=== PATIENT | female | born 2000 | race Caucasian/White ===

== ENCOUNTER 2022-06-26 11:43 | Emergency (ER) | payer OTHER ==
--- NOTE | 2022-06-26 12:34 | ED ---
Abdominal Pain HPI - General Source: patient Mode of arrival: ambulatory Limitations: no limitations <Grace Centeno - Last Filed: 06/26/22 12:32> - General Source: patient, family, RN notes reviewed Mode of arrival: ambulatory Limitations: no limitations <Brant Liu - Last Filed: 06/26/22 18:41> - General Chief Complaint: Abdominal Pain Stated Complaint: 7wks Preg, "no longer having symptoms" - History of Present Illness Initial Comments: 22 year old female presenting to the emergency department compl aining of a problem. She reports that she is 7 weeks and 6 days and has had daily nausea and feeling hungry when she wakes up. Today she woke up and did not have those symptoms. She denies nausea, vomiting, diarrhea, vaginal bleeding, vaginal cramping, vaginal discharge. (Grace Centeno) Patient is a pleasant 22-year-old female presenting to the emergency department with concerns regarding . This is patient's second . Patient normally has a lot of breast tenderness, cramping, and nausea. Patient had none of those symptoms today and therefore she was concerned. Patient denies any bleeding. Patient did have ultrasound done just over a week ago showing 6 weeks intrauterine at a different facility. (Brant Liu) - Related Data Allergies Allergy/AdvReac Type Severity Reaction Status Date / Time No Known Allergies Allergy Verified 06/26/22 12:09 Review of Systems ROS Other: All systems not noted in ROS Statement are negative. <Grace Centeno - Last Filed: 06/26/22 12:32> ROS Other: All systems not noted in ROS Statement are negative. Constitutional: Denies: fever Eyes: Denies: eye pain ENT: Denies: ear pain Respiratory: Denies: cough Cardiovascular: Denies: chest pain Endocrine: Denies: fatigue Gastrointestinal: Reports: as per HPI Genitourinary: Reports: as per HPI <Brant Liu - Last Filed: 06/26/22 18:41> ROS Statement: Those systems with pertinent positive or pertinent negative responses have been documented in the HPI. Past Medical History Past Medical History: No Reported History History of Any Multi-Drug Resistant Organisms: None Reported Past Surgical History: No Surgical Hx Reported Past Psychological History: No Psychological Hx Reported Smoking Status: Never smoker Past Alcohol Use History: None Reported Past Drug Use History: None Reported <Grace Centeno - Last Filed: 06/26/22 12:32> General Exam Limitations: no limitations <Grace Centeno - Last Filed: 06/26/22 12:32> Limitations: no limitations General appearance: alert, in no apparent distress Head exam: Present: normocephalic Eye exam: Present: normal appearance Neck exam: Present: normal inspection Respiratory exam: Present: normal lung sounds bilaterally Cardiovascular Exam: Present: regular rate, normal rhythm GI/Abdominal exam: Present: soft. Absent: tenderness Extremities exam: Present: normal inspection. Absent: pedal edema, calf tenderness Neurological exam: Present: alert Psychiatric exam: Present: normal affect, normal mood Skin exam: Present: normal color <Brant Liu - Last Filed: 06/26/22 18:41> Course Vital Signs 06/26/22 12:09 Temperature 98.2 F Pulse Rate 90 Respiratory 16 Rate Blood Pressure 138/89 O2 Sat by Pulse 99 Oximetry Medical Decision Making - Lab Data Result diagrams: 06/26/22 14:04 06/26/22 14:04 <Brant Liu - Last Filed: 06/26/22 18:41> - Medical Decision Making Was pt. sent in by a medical professional or institution (, ADAM, AQUACULTURE DIRECTOR, urgent care, hospital, or penitentiary...) When possible be specific @ -[No] Did you speak to anyone other than the patient for history (EMS, parent, family, police, friend...)? What history was obtained from this source @ -Family is present that helps provide history of patient's usual symptoms. Did you review nursing and triage notes (agree or disagree)? Why? @ -[I reviewed and agree with nursing and triage notes] Were old charts reviewed (outside hosp., previous admission, EMS record, old EKG, old radiological studies, urgent care reports/EKG's, penitentiary records)? Report findings @ -[No old charts were reviewed] Differential Diagnosis (chest pain, altered mental status, abdominal pain women, abdominal pain men, vaginal bleeding, weakness, fever, dyspnea, syncope, headache, dizziness, GI bleed, back pain, seizure, CVA, palpatations, mental health)? @ -Differential Headache: Migraine, tension, cluster, carbon monoxide, central venous thrombosis, pension karma temporal arteritis, acute closure glaucoma, intercranial hemorrhage, ma stoiditis, sinusitis, head injury, this is not meant to be an all-inclusive list. Vaginal bleedingWas pt. sent in by a medical professional or institution ([facility]AM Thayer, AQUACULTURE DIRECTOR, urgent care, hospital, or penitentiary...) When possible be specific @ -Differential abdominal pain women Did you speak to anyone other than the patient for history (EMS, parent, family, police, friend...)? What history was obtained from this source @ -Family is present to help provide history. Did you review nursing and triage notes (agree or disagree)? Why? @ -[I reviewed and agree with nursing and triage notes] Were old charts reviewed (outside hosp., previous admission, EMS record, old EKG, old radiological studies, urgent care reports/EKG's, penitentiary records)? Report findings @ -[No old charts were reviewed] Differential Diagnosis (chest pain, altered mental status, abdominal pain women, abdominal pain men, vaginal bleeding, weakness, fever, dyspnea, syncope, headache, dizziness, GI bleed, back pain, seizure, CVA, palpatations, mental health)? @ -[not applicable] EKG interpreted by me (3pts min.). @ -[As above] X-rays interpreted by me (1pt min.). @ -[None done] CT interpreted by me (1pt min.). @ -[None done] U/S interpreted by me (1pt. min.). @ -Ultrasound report shows IUP 7 weeks 2 days What testing was considered but not performed or refused? (CT, X-rays, U/S, labs)? Why? @ -[None] What meds were considered but not given or refused? Why? @ -[None] Did you discuss the management of the patient with other professionals (professionals i.e. ADAM Thayer, AQUACULTURE DIRECTOR, lab, RT, psych nurse, socially responsible investment adviser, steel worker, teacher, loan officer assistant, continuous pillowcase cutter)? Give summary @ -[No] Was smoking cessation discussed for >3mins.? @ -[No] Was critical care preformed (if so, how long)? @ -[No] Were there social determinants of health that impacted care today? How? (Home lessness, low income, unemployed, alcoholism, drug addiction, transportation, low edu. Level, literacy, decrease access to med. care, senior living, rehab)? @ -[No] Was there de-escalation of care discussed even if they declined (Discuss DNR or withdrawal of care, Hospice)? DNR status @ -[No] What co-morbidities impacted this encounter? (DM, HTN, Smoking, COPD, CAD, Cancer, CVA, ARF, Chemo, Hep., AIDS, mental health diagnosis, sleep apnea, morbid obesity)? @ -[None] Was patient admitted / discharged? Hospital course, mention meds given and route, prescriptions, significant lab abnormalities, going to OR and other pertinent info. @ -Patient and family are made aware of results and need for follow-up. They do have an appointment for 10 days Undiagnosed new problem with uncertain prognosis? @ -[No] Drug Therapy requiring intensive monitoring for toxicity (Heparin, Nitro, Insulin, Cardizem)? @ -[No] Were any procedures done? @ -[No] Diagnosis/symptom? @ -Intrauterine Acute, or Chronic, or Acute on Chronic? @ -Acute Uncomplicated (without systemic symptoms) or Complicated (systemic symptoms)? @ -Uncomplicated Side effects of treatment? @ -[No] Exacerbation, Progression, or Severe Exacerbation? @ -[No] Poses a threat to life or bodily function? How? (Chest pain, [place], [place], pneumonia, PE, COPD, DKA, ARF, appy, cholecystitis, CVA, Diverticulitis, Homicidal, Suicidal, threat to staff... and all critical care pts) @ -[No] (Brant Liu) - Lab Data Lab Results 06/26/22 06/26/22 Range/Units 14:04 14:04 WBC 9.8 (3.8-10.6) k/uL RBC 4.04 (3.80-5.40) m/uL Hgb 13.1 (11.4-16.0) gm/dL Hct 36.6 (34.0-46.0) % MCV 90.6 (80.0-100.0) fL MCH 32.4 (25.0-35.0) pg MCHC 35.8 (31.0-37.0) g/dL RDW 11.4 L (11.5-15.5) % Plt Count 216 (150-450) k/uL MPV 8.4 Neutrophils % 75 % Lymphocytes % 17 % Monocytes % 5 % Eosinophils % 3 % Basophils % 0 % Neutrophils # 7.3 (1.3-7.7) k/uL Lymphocytes # 1.6 (1.0-4.8) k/uL Monocytes # 0.4 (0-1.0) k/uL Eosinophils # 0.3 (0-0.7) k/uL Basophils # 0.0 (0-0.2) k/uL Sodium 138 (137-145) mmol/L Potassium 4.0 (3.5-5.1) mmol/L Chloride 104 (98-107) mmol/L Carbon Dioxide 26 (22-30) mmol/L Anion Gap 8 mmol/L BUN 10 (7-17) mg/dL Creatinine 0.57 (0.52-1.04) mg/dL Est GFR (CKD-EPI)AfAm >90 (>60 ml/min/1.73 sqM) Est GFR (CKD-EPI)NonAf >90 (>60 ml/min/1.73 sqM) Glucose 83 (74-99) mg/dL Calcium 9.0 (8.4-10.2) mg/dL Total Bilirubin 0.2 (0.2-1.3) mg/dL AST 15 (14-36) U/L ALT 12 (4-34) U/L Alkaline Phosphatase 40 (38-126) U/L Total Protein 7.3 (6.3-8.2) g/dL Albumin 4.5 (3.5-5.0) g/dL HCG, Quant 070672.0 mIU/mL Disposition <Grace Centeno - Last Filed: 06/26/22 12:32> Is patient prescribed a controlled substance at d/c from ED?: No Time of Disposition: 18:41 <Brant Liu - Last Filed: 06/26/22 18:41> Clinical Impression: Intrauterine Disposition: HOME SELF-CARE Condition: Stable Instructions (If sedation given, give patient instructions): (ED) Additional Instructions: Please do follow-up with [facility] in the next couple days for recheck. Return for cramping, bleeding, fever, worsening or changing symptoms or other concerns. Referrals: Nonstaff,Physician [Primary Care Provider] - 1-2 days Beverly Bernal, DO [Doctor of Osteopathic Medicine] - 1-2 days
--- NOTE | 2022-06-26 13:52 | US ---
EXAMINATION TYPE: Transabdominal DATE OF EXAM: 06/26/2022 1:42 PM COMPARISON: NONE CLINICAL HISTORY: Threatened miscarriage. Patient states she woke up this morning without her pregnan cy symptoms such as nausea and breast pain. Patient states she is concerned. Positive beta hCG test. EXAM PERFORMED: Transabdominal (TA) EXAM MEASUREMENTS: GESTATIONAL AGE / DATING Physician Established: Not yet established Dates by LMP: (7 weeks/6 days) EDC: 02/06/2023 Dates by Current Scan for: (7 weeks/2 days) EDC: 02/10/2023 MATERNAL ANATOMY Uterus: 10.5 x 7.5 x 5.7 cm Right Ovary: 2.9 x 1.5 x 1.4 cm Left Ovary: 3.1 x 2.1 x 1.6 cm Post CDS / Adnexa: no free fluid Presence of free fluid: no Presence of corpus luteal cyst: no Presence of subchorionic bleed: fundal right- 1.7 x 0.9 x 1.1 cm GESTATION / SURVEY CRL: 1.1 cm (7 weeks/2 days) MSD: visualized within endometrium Yolk Sac (normal less than 6mm): 2.7 mm Heart Rate: 158 bpm Rhythm: Normal IUP: Viable IUP Date of LMP: 05/02/2022, Beta HcG (if available): Not available at this time Single live intrauterine gestation as gestational sac, yolk sac, and pole are seen. Possible ti ny fundal subchorionic hemorrhage versus implantation bleed measuring 1.7 x 1.1 x 0.9 cm towards end of study. No free fluid in pelvis. Both ovaries are seen. Ovaries symmetric and normal in size. There is no suspicious adnexal mass. IMPRESSION: Single live intrauterine gestation is confirmed. Mean crown-rump length 1.1 cm correspond ing to 7 week 2 day old fetus.
[2022-06-26 14:25] LABS: Basophils % (A) 0 %; Eosinophils # (A) 0.3 k/uL (0-0.7); Eosinophils % (A) 3 %; HCT 36.6 % (34.0-46.0); HGB 13.1 gm/dL (11.4-16.0); Lymphocytes # (A) 1.6 k/uL (1.0-4.8); Lymphocytes % (A) 17 %; MCH 32.4 pg (25.0-35.0); MCHC 35.8 g/dL (31.0-37.0); MCV 90.6 fL (80.0-100.0); Mean Platelet Volume 8.4; Monocytes # (A) 0.4 k/uL (0-1.0); Monocytes % (A) 5 %; Neutrophils # (A) 7.3 k/uL (1.3-7.7); Neutrophils % (A) 75 %; Platelet Count 216 k/uL (150-450); RBC 4.04 m/uL (3.80-5.40); RDW 11.4 % (11.5-15.5); WBC 9.8 k/uL (3.8-10.6)
[2022-06-26 14:48] LABS: ALT 12 U/L (4-34); AST 15 U/L (14-36); African American GFR (CKD) >90 (>60 ml/min/1.73 sqM); Albumin 4.5 g/dL (3.5-5.0); Alkaline Phosphatase 40 U/L (38-126); Anion Gap 8 mmol/L; Blood Urea Nitrogen 10 mg/dL (7-17); Carbon Dioxide 26 mmol/L (22-30); Chloride 104 mmol/L (98-107); Non-African American GFR(CKD) >90 (>60 ml/min/1.73 sqM); Sodium 138 mmol/L (137-145); Total Bilirubin 0.2 mg/dL (0.2-1.3); Total Protein 7.3 g/dL (6.3-8.2)
[2022-06-26 16:22] LABS: Glucose 83 mg/dL (74-99)
[2022-06-26 19:01] VITALS: BP 110/74; PULSE 83; RESP 18; TEMP 98.4
== END 2022-06-26 18:50 | disposition home or self-care (01) ==
LOC: EC 11:43
DX: O00.01 Abdominal pregnancy with intrauterine pregnancy (principal); Z3A.01 Less than 8 weeks gestation of pregnancy
CPT/HCPCS: 36415; 76801; 80053; 84702; 85025; 99284